=== PATIENT | male | born 1990 | race Caucasian/White ===

== ENCOUNTER 2018-12-27 10:49 | Emergency (ER) | payer OTHER ==
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
[2018-12-27] MEDS ORDERED: IBUPROFEN 600 MG TABLET (FP) PO ONE ×2 (11:02→11:08)
[2018-12-27 11:21] VITALS: PULSE 82; TEMP 97.7; BMI 36.6
[2018-12-27 11:28] VITALS: BP 140/100
== END 2018-12-27 12:35 | disposition home or self-care (01) ==
LOC: FER 10:49
DX: M25.512 Pain in left shoulder (principal); W22.8XXA Striking against or struck by other objects, initial encounter; Y93.89 Activity, other specified; Y92.410 Unspecified street and highway as the place of occurrence of the external cause; Y99.0 Civilian activity done for income or pay
CPT/HCPCS: 73030-TC-LT-FY; 99282-25